=== PATIENT | female | born 1955 | race Caucasian/White ===

== ENCOUNTER 2023-12-20 09:20 | Outpatient (CLI) | payer MEDICARE, BC | END 2023-12-20 09:21 | disposition home or self-care (01) | LOC: BICRAD 09:20 | PROVIDERS: ATTEND Nurse Practitioner Family | DX: R09.89 Other specified symptoms and signs involving the circulatory and respiratory systems (principal) | CPT/HCPCS: 71046 ==

== ENCOUNTER 2025-09-10 08:56 | Outpatient (CLI) | payer MEDICARE, BC ==
[2025-09-10 09:23] LABS: Estimated GFR - POC 68.0
== END 2025-09-10 08:57 | disposition home or self-care (01) ==
LOC: CT 08:56
PROVIDERS: ATTEND Urology
DX: N13.30 Unspecified hydronephrosis (principal); N28.1 Cyst of kidney, acquired
CPT/HCPCS: 36415; 74178; 82565

== ENCOUNTER 2025-10-07 12:50 | Outpatient (CLI) | payer MEDICARE, BC | END 2025-10-07 12:51 | disposition home or self-care (01) | LOC: CT 12:50 | PROVIDERS: ATTEND Internal Medicine | DX: J44.9 Chronic obstructive pulmonary disease, unspecified (principal) | CPT/HCPCS: 71250 ==